=== PATIENT | female | born 1995 | race Caucasian/White ===

== ENCOUNTER 2018-01-06 15:26 | Emergency (ER) | payer OTHER ==
[~2018-01-06] VITALS: Ht 154.9 cm; Wt 117.0 kg
[~2018-01-06 15:26] MED LIST: AMOXICILLIN 50500 MG PO; LEXAPRO 10 MG T10 M1; VITAMIN D 5050000 I1 PO; VITAMIN D1000 UNI1 PO
[2018-01-06 16:04] VITALS: BP 154/87
== END 2018-01-06 16:05 | disposition home or self-care (01) ==
LOC: M.ERS 15:26
DX: F41.0 Panic disorder [episodic paroxysmal anxiety] (principal); F15.10 Other stimulant abuse, uncomplicated; Z90.49 Acquired absence of other specified parts of digestive tract; Z90.89 Acquired absence of other organs; Z88.6 Allergy status to analgesic agent

== ENCOUNTER 2018-04-23 11:15 | Emergency (ER) | payer OTHER ==
[~2018-04-23] VITALS: Ht 167.6 cm; Wt 117.0 kg
[2018-04-23 11:19] VITALS: BP 148/83
== END 2018-04-23 11:52 | disposition home or self-care (01) ==
LOC: M.ERS 11:15
DX: R19.7 Diarrhea, unspecified (principal); F41.0 Panic disorder [episodic paroxysmal anxiety]; F17.210 Nicotine dependence, cigarettes, uncomplicated; Z88.6 Allergy status to analgesic agent; Z90.49 Acquired absence of other specified parts of digestive tract

== ENCOUNTER 2018-07-10 09:53 | Emergency (ER) | payer OTHER ==
[~2018-07-10] VITALS: Ht 167.6 cm; Wt 116.1 kg
[2018-07-10] MEDS ORDERED: [UNRECOGNIZED DRUG - REMARK] (10:05)
[2018-07-10 10:20] VITALS: BP 146/87
== END 2018-07-10 10:21 | disposition home or self-care (01) ==
LOC: M.ERS 09:53
DX: R19.7 Diarrhea, unspecified (principal); F41.9 Anxiety disorder, unspecified; Z90.49 Acquired absence of other specified parts of digestive tract; F17.200 Nicotine dependence, unspecified, uncomplicated; Z88.6 Allergy status to analgesic agent

== ENCOUNTER 2018-07-20 12:42 | Emergency (ER) | payer OTHER ==
[~2018-07-20] VITALS: Ht 167.6 cm; Wt 114.3 kg
[~2018-07-20 12:42] MED LIST changes: +[UNRECOGNIZED DRUG - REMARK]
[2018-07-20] MEDS ORDERED: ANTIBIOTIC (13:07)
[2018-07-20 13:45] VITALS: BP 134/80
== END 2018-07-20 13:47 | disposition home or self-care (01) ==
LOC: M.ERS 12:42
DX: S61.411A Laceration without foreign body of right hand, initial encounter (principal); F41.0 Panic disorder [episodic paroxysmal anxiety]; Z90.49 Acquired absence of other specified parts of digestive tract; Z88.6 Allergy status to analgesic agent; W26.8XXA Contact with other sharp object(s), not elsewhere classified, initial encounter; Y93.89 Activity, other specified; Y92.89 Other specified places as the place of occurrence of the external cause; Y99.0 Civilian activity done for income or pay

== ENCOUNTER 2019-01-20 11:05 | Emergency (ER) | payer OTHER ==
[~2019-01-20] VITALS: Ht 170.2 cm; Wt 113.4 kg
[~2019-01-20 11:05] MED LIST changes: +ANTIBIOTIC
[2019-01-20] MEDS ORDERED: LIDOCAINE 2%2 %/5 GM TOP (11:48)
[2019-01-20 12:31] VITALS: BP 140/68
== END 2019-01-20 12:32 | disposition home or self-care (01) ==
LOC: M.ERS 11:05
DX: T23.102A Burn of first degree of left hand, unspecified site, initial encounter (principal); T31.0 Burns involving less than 10% of body surface; F41.0 Panic disorder [episodic paroxysmal anxiety]; F17.210 Nicotine dependence, cigarettes, uncomplicated; Z88.6 Allergy status to analgesic agent; Z90.49 Acquired absence of other specified parts of digestive tract; X19.XXXA Contact with other heat and hot substances, initial encounter; Y93.89 Activity, other specified; Y92.89 Other specified places as the place of occurrence of the external cause; Y99.8 Other external cause status

== ENCOUNTER 2021-07-20 22:13 | Emergency (ER) | payer MEDICAID ==
[~2021-07-20] VITALS: Ht 170.2 cm; Wt 95.3 kg
[~2021-07-20 22:13] MED LIST changes: +LIDOCAINE 2%2 %/5 GM TOP
[2021-07-20] MEDS ORDERED: ACYCLOVIR 200200 MG PO (22:36)
[2021-07-20] MEDS ORDERED: AMOXICILLIN875 MG PO (22:52)
[2021-07-20] MEDS ORDERED: PERCOCET 5-3251 EACH PO (22:52)
[2021-07-20 23:08] VITALS: BP 132/76
== END 2021-07-20 23:08 | disposition home or self-care (01) ==
LOC: M.ERS 22:13
DX: K08.89 Other specified disorders of teeth and supporting structures (principal); F41.9 Anxiety disorder, unspecified; Z98.890 Other specified postprocedural states; Z90.49 Acquired absence of other specified parts of digestive tract; Z79.899 Other long term (current) drug therapy; Z88.8 Allergy status to other drugs, medicaments and biological substances